=== PATIENT | female | born 1995 | race Caucasian/White ===

== ENCOUNTER 2017-11-03 21:06 | Outpatient (CLI) | payer MEDICAID ==
[2017-11-04 01:47] LABS: ADD UMIC YES; UR ASCORBIC ACID 40 mg/dL (NEGATIVE); UR BACTERIA FEW /HPF (NONE SEEN); UR BILIRUBIN (Dip) NEGATIVE (NEGATIVE); UR BLOOD (Dip) NEGATIVE (NEGATIVE); UR CLARITY CLOUDY (CLEAR); UR COLOR YELLOW (YELLOW); UR GLUCOSE (Dip) NEGATIVE (NEGATIVE); UR KETONES (Dip) NEGATIVE (NEGATIVE); UR LEUKOCYTE ESTERASE (Dip) TRACE Leu/ul (NEGATIVE); UR NITRITE (Dip) NEGATIVE (NEGATIVE); UR RBC 0 /HPF (0-5); UR SPECIFIC GRAVITY (Dip) 1.025 (1.003-1.030); UR SQUAMOUS EPITHELIAL CELL MODERATE /HPF (FEW); UR TOTAL PROTEIN (Dip) NEGATIVE (NEGATIVE); UR UROBILINOGEN (Dip) NEGATIVE (NEGATIVE); UR WBC 6 /HPF (0-5)
[2017-11-04 01:59] LABS: RUPTURE FETAL MEMBRANES NEGATIVE (NEGATIVE)
== END 2017-11-04 02:23 | disposition home or self-care (01) ==
LOC: OBT 21:06 → L-D 21:07
DX: O42.912 Preterm premature rupture of membranes, unspecified as to length of time between rupture and onset of labor, second trimester (principal); Z3A.22 22 weeks gestation of pregnancy
CPT/HCPCS: 76815; 81001; 84112

== ENCOUNTER 2018-01-10 18:34 | Outpatient (CLI) | payer OTHER, MEDICAID ==
[2018-01-10 20:43] LABS: ADD UMIC NO; UR ASCORBIC ACID NEGATIVE (NEGATIVE); UR BILIRUBIN (Dip) NEGATIVE (NEGATIVE); UR BLOOD (Dip) NEGATIVE (NEGATIVE); UR CLARITY CLEAR (CLEAR); UR COLOR STRAW (YELLOW); UR GLUCOSE (Dip) NEGATIVE (NEGATIVE); UR KETONES (Dip) NEGATIVE (NEGATIVE); UR LEUKOCYTE ESTERASE (Dip) NEGATIVE Leu/ul (NEGATIVE); UR NITRITE (Dip) NEGATIVE (NEGATIVE); UR SPECIFIC GRAVITY (Dip) 1.008 (1.003-1.030); UR TOTAL PROTEIN (Dip) NEGATIVE (NEGATIVE); UR UROBILINOGEN (Dip) NEGATIVE (NEGATIVE)
[2018-01-10 21:10] LABS: AMPHETAMINE/METHAMPHETAMINE Negative (NEGATIVE); BARBITURATES Negative (NEGATIVE); BENZODIAZEPINES Negative (NEGATIVE); CANNABINOIDS Negative (NEGATIVE); COCAINE Negative (NEGATIVE); OPIATES Negative (NEGATIVE)
== END 2018-01-10 21:24 | disposition home or self-care (01) ==
LOC: OBT 18:34 → L-D 18:35 → OBT 21:24
DX: O26.893 Other specified pregnancy related conditions, third trimester (principal); Z3A.31 31 weeks gestation of pregnancy; R42 Dizziness and giddiness
CPT/HCPCS: 76818; 80307; 81003

== ENCOUNTER 2018-02-17 07:31 | Outpatient (CLI) | payer OTHER ==
[2018-02-17] MEDS: LACTATED RINGER'S 2,000 ML IV* (08:40)
[2018-02-17] MEDS: TERBUTALINE 1 MG/ML INJ SC (08:41)
[2018-02-17 08:44] LABS: ADD UMIC NO; UR ASCORBIC ACID 20 mg/dL (NEGATIVE); UR BACTERIA FEW /HPF (NONE SEEN); UR BILIRUBIN (Dip) NEGATIVE (NEGATIVE); UR BLOOD (Dip) NEGATIVE (NEGATIVE); UR CLARITY SLIGHTLY CLOUDY (CLEAR); UR COLOR YELLOW (YELLOW); UR GLUCOSE (Dip) NEGATIVE (NEGATIVE); UR KETONES (Dip) NEGATIVE (NEGATIVE); UR LEUKOCYTE ESTERASE (Dip) NEGATIVE Leu/ul (NEGATIVE); UR MUCUS FEW /HPF (NONE SEEN); UR NITRITE (Dip) NEGATIVE (NEGATIVE); UR RBC 1 /HPF (0-5); UR SPECIFIC GRAVITY (Dip) 1.015 (1.003-1.030); UR SQUAMOUS EPITHELIAL CELL FEW /HPF (FEW); UR TOTAL PROTEIN (Dip) NEGATIVE (NEGATIVE); UR UROBILINOGEN (Dip) NEGATIVE (NEGATIVE); UR WBC 3 /HPF (0-5)
[2018-02-17 08:50] LABS: AMPHETAMINE/METHAMPHETAMINE Negative (NEGATIVE); BARBITURATES Negative (NEGATIVE); BENZODIAZEPINES Negative (NEGATIVE); CANNABINOIDS Negative (NEGATIVE); COCAINE Negative (NEGATIVE); OPIATES Negative (NEGATIVE)
[2018-02-17] MEDS: LACTATED RINGER'S 1,000 ML IV* (09:08)
[2018-02-17 09:26] LABS: ADD MAN DIFF? NO
[2018-02-17 09:30] LABS: WHITE BLOOD COUNT 10.3 10^3/ul (4.8-10.8)
[2018-02-17 09:30] LABS: BASOPHILS % 0.3 % (0.0-2.0); EOSINOPHILS # 0.1 10^3/ul (0.0-0.5); EOSINOPHILS % 0.9 % (0.0-7.0); HEMATOCRIT 35.8 % (37.0-47.0); LYMPHOCYTES # 1.4 10^3/ul (0.8-2.9); LYMPHOCYTES % 13.7 % (15.0-51.0); MEAN CORPUSCULAR HEMOGLOBIN 31.5 pg (29.0-33.0); MEAN CORPUSCULAR HGB CONC 33.5 g/dl (32.0-37.0); MEAN PLATELET VOLUME 11.1 fl (7.4-10.4); MONOCYTE # 0.8 10^3/ul (0.3-0.9); MONOCYTES % 8.1 % (0.0-11.0); NEUTROPHIL # 7.8 10^3/ul (1.6-7.5); NEUTROPHILS % 75.6 % (39.0-77.0); PLATELET COUNT 174 10^3/UL (140-415); RED BLOOD COUNT 3.81 10^6/ul (4.20-5.40); RED CELL DISTRIBUTION WIDTH 11.9 % (11.5-14.5)
== END 2018-02-17 10:12 | disposition left against medical advice (07) ==
LOC: OBT 07:31 → L-D 07:31 → OBT 10:12
DX: Z53.21 Procedure and treatment not carried out due to patient leaving prior to being seen by health care provider (principal)
CPT/HCPCS: 36415; 76818; 80307; 81001; 81003; 85025; 87086; 96360

== ENCOUNTER 2018-03-05 12:37 | Outpatient (CLI) | payer OTHER ==
[2018-03-05 13:57] LABS: RUPTURE FETAL MEMBRANES NEGATIVE (NEGATIVE)
[2018-03-05] MEDS ORDERED: TERBUTALINE 1 MG/ML INJ SC (18:30)
[2018-03-05] MEDS ORDERED: MEPERIDINE 50 MG INJ IM (18:30)
== END 2018-03-05 18:30 | disposition home or self-care (01) ==
LOC: OBT 12:37 → L-D 12:42 → OBT 18:30
DX: O42.913 Preterm premature rupture of membranes, unspecified as to length of time between rupture and onset of labor, third trimester (principal); Z3A.36 36 weeks gestation of pregnancy
CPT/HCPCS: 76815; 76818; 84112

== ENCOUNTER 2018-03-14 04:55 | Inpatient (IN) | payer OTHER ==
[2018-03-14] MEDS ORDERED: OXYTOCIN 30 UNITS/LR 500 ML IV ×2 (06:30)
[2018-03-14] MEDS ORDERED: BUTORPHANOL 2 MG INJ IV (06:30)
[2018-03-14] MEDS ORDERED: LIDOCAINE 1% (MPF) 30 ML INJ INJ (06:30)
[2018-03-14] MEDS ORDERED: IBUPROFEN 600 MG TAB PO (06:30)
[2018-03-14] MEDS ORDERED: CARBOPROST 250 MCG INJ IM (06:30)
[2018-03-14] MEDS ORDERED: AMPICILLIN 2 GM/NS (PMX) 100 ML IV (06:30)
[2018-03-14] MEDS: LACTATED RINGER'S 1,000 ML IV ×5 (06:53→23:00)
[2018-03-14 07:08] LABS: ADD MAN DIFF? NO
[2018-03-14 07:11] LABS: BASOPHILS % 0.3 % (0.0-2.0); EOSINOPHILS % 0.1 % (0.0-7.0); HEMOGLOBIN 13.2 g/dl (12.0-16.0); LYMPHOCYTES # 1.2 10^3/ul (0.8-2.9); LYMPHOCYTES % 9.5 % (15.0-51.0); MEAN CORPUSCULAR HEMOGLOBIN 31.1 pg (29.0-33.0); MEAN CORPUSCULAR HGB CONC 33.8 g/dl (32.0-37.0); MEAN CORPUSCULAR VOLUME 91.8 fl (82.0-101.0); MEAN PLATELET VOLUME 11.3 fl (7.4-10.4); MONOCYTE # 0.7 10^3/ul (0.3-0.9); MONOCYTES % 5.3 % (0.0-11.0); NEUTROPHIL # 10.7 10^3/ul (1.6-7.5); NEUTROPHILS % 83.9 % (39.0-77.0); PLATELET COUNT 203 10^3/UL (140-415); RED BLOOD COUNT 4.25 10^6/ul (4.20-5.40); RED CELL DISTRIBUTION WIDTH 11.9 % (11.5-14.5)
[2018-03-14 07:11] LABS: WHITE BLOOD COUNT 12.8 10^3/ul (4.8-10.8)
[2018-03-14 07:31] LABS: INR 0.96; PARTIAL THROMBOPLASTIN TIME 25.8 Sec (23.0-35.0); PROTIME 12.9 Sec (11.9-14.9)
[2018-03-14 08:01] LABS: HEPATITIS B SURFACE ANTIGEN NEGATIVE (NEGATIVE)
[2018-03-14 09:03] LABS: ADD UMIC NO; UR ASCORBIC ACID NEGATIVE (NEGATIVE); UR BILIRUBIN (Dip) NEGATIVE (NEGATIVE); UR BLOOD (Dip) NEGATIVE (NEGATIVE); UR CLARITY CLEAR (CLEAR); UR COLOR YELLOW (YELLOW); UR GLUCOSE (Dip) NEGATIVE (NEGATIVE); UR KETONES (Dip) NEGATIVE (NEGATIVE); UR LEUKOCYTE ESTERASE (Dip) NEGATIVE Leu/ul (NEGATIVE); UR NITRITE (Dip) NEGATIVE (NEGATIVE); UR SPECIFIC GRAVITY (Dip) 1.006 (1.003-1.030); UR TOTAL PROTEIN (Dip) NEGATIVE (NEGATIVE); UR UROBILINOGEN (Dip) NEGATIVE (NEGATIVE)
[2018-03-14] MEDS: OXYTOCIN 30 UNITS/LR 500 ML IV (10:15)
[2018-03-14] MEDS ORDERED: AMPICILLIN 1 GM/NS (PMX) 50 ML IV (10:30)
[2018-03-14] MEDS ORDERED: FENTAnyl 2MCG/ML-ROPIV 0.2% 100 ML (10:55)
[2018-03-14] MEDS ORDERED: DIPHENHYDRAMINE 50 MG INJ IV (12:30)
[2018-03-14] MEDS ORDERED: NALOXONE (0.4 MG/ML) INJ IV (12:30)
[2018-03-14] MEDS ORDERED: ONDANSETRON 4 MG INJ IV (12:30)
[2018-03-14] MEDS: AMPICILLIN 2 GM/NS (PMX) 100 ML IVPB (14:03)
[2018-03-14] MEDS: FENTAnyl 2MCG/ML-ROPIV 0.2% 100 ML BAG EPI ×2 (15:16→21:29)
[2018-03-14 15:17] LABS: RAPID PLASMA REAGIN NONREACTIVE (NR)
[2018-03-14] MEDS: AMPICILLIN 1 GM/NS (PMX) 50 ML IV ×2 (17:43→21:31)
[2018-03-14 22:55] LABS: HIV 1&2 ANTIBODY NEGATIVE (NEGATIVE)
[2018-03-14] MEDS ORDERED: LIDOCAINE 1% (MPF) 30 ML INJ (23:18)
[2018-03-14] MEDS: MINERAL OIL LIGHT 10 ML VIAL TOP (23:30)
[2018-03-15] MEDS: MISOPROSTOL 200 MCG TAB PR (00:47)
[2018-03-15] MEDS: METHYLERGONOVINE 0.2 MG INJ IM (00:52)
[2018-03-15] MEDS: OXYTOCIN 30 UNITS/LR 500 ML IV (01:03)
[2018-03-15] MEDS: AMPICILLIN 1 GM/NS (PMX) 50 ML IV ×3 (02:00→06:57)
[2018-03-15] MEDS: DEXTROSE 5%-LR 1,000 ML IV ×2 (03:01→06:58)
[2018-03-15] MEDS: LACTATED RINGER'S 1,000 ML IV* (03:01)
[2018-03-15] MEDS ORDERED: METHYLERGONOVINE 0.2 MG INJ IM (03:30)
[2018-03-15] MEDS ORDERED: MISOPROSTOL 200 MCG TAB PR (03:30)
[2018-03-15] MEDS ORDERED: SENNA/DOCUSATE NA (8.6MG/50MG) TAB PO (03:30)
[2018-03-15] MEDS ORDERED: CARBOPROST 250 MCG INJ IM (03:30)
[2018-03-15] MEDS ORDERED: DIPHENHYDRAMINE 50 MG INJ IV (03:30)
[2018-03-15] MEDS ORDERED: ZOLPIDEM 5 MG TAB PO (03:30)
[2018-03-15] MEDS ORDERED: ONDANSETRON 4 MG INJ IV (03:30)
[2018-03-15] MEDS ORDERED: OXYCODONE/ASPIRIN (4.88/325) TAB PO (03:30)
[2018-03-15] MEDS ORDERED: DIBUCAINE 1% 30 GM OINT TOP (03:30)
[2018-03-15] MEDS ORDERED: OXYTOCIN 30 UNITS/LR 500 ML IV (03:30)
[2018-03-15] MEDS: LANOLIN 7 GM TUBE TOP (04:24)
[2018-03-15] MEDS: BENZOCAINE 20% 56 ML SPRAY TOP (04:25)
[2018-03-15] MEDS: WITCH HAZEL/GLYCERIN PAD PR ×2 (04:25→20:05)
[2018-03-15] MEDS: IBUPROFEN 600 MG TAB PO ×4 (05:58→19:51)
[2018-03-15] MEDS: ACETAMINOPHEN 325 MG TAB PO (19:52)
[2018-03-16] MEDS: IBUPROFEN 600 MG TAB PO ×5 (00:21→23:59)
[2018-03-16 07:28] LABS: ADD MAN DIFF? NO
[2018-03-16 07:29] LABS: WHITE BLOOD COUNT 15.9 10^3/ul (4.8-10.8)
[2018-03-16 07:29] LABS: BASOPHIL # 0.1 10^3/ul (0.0-0.1); BASOPHILS % 0.3 % (0.0-2.0); EOSINOPHILS # 0.2 10^3/ul (0.0-0.5); EOSINOPHILS % 1.3 % (0.0-7.0); HEMATOCRIT 33.9 % (37.0-47.0); HEMOGLOBIN 11.4 g/dl (12.0-16.0); LYMPHOCYTES # 2.3 10^3/ul (0.8-2.9); LYMPHOCYTES % 14.3 % (15.0-51.0); MEAN CORPUSCULAR HEMOGLOBIN 31.8 pg (29.0-33.0); MEAN CORPUSCULAR HGB CONC 33.6 g/dl (32.0-37.0); MEAN CORPUSCULAR VOLUME 94.4 fl (82.0-101.0); MEAN PLATELET VOLUME 11.2 fl (7.4-10.4); MONOCYTE # 1.1 10^3/ul (0.3-0.9); MONOCYTES % 7.2 % (0.0-11.0); NEUTROPHIL # 12.2 10^3/ul (1.6-7.5); NEUTROPHILS % 76.2 % (39.0-77.0); PLATELET COUNT 178 10^3/UL (140-415); RED BLOOD COUNT 3.59 10^6/ul (4.20-5.40); RED CELL DISTRIBUTION WIDTH 12.1 % (11.5-14.5)
[2018-03-17] MEDS: IBUPROFEN 600 MG TAB PO ×2 (06:42→12:00)
[2018-03-17] MEDS: DIPHTH/TET/ACEL PERTUSS (ADULT) 0.5 ML VIAL IM* (09:00)
[2018-03-17] MEDS: MEASLES,MUMPS,RUBELLA VACCINE INJ SC* (09:00)
[2018-03-18 12:16] LABS: RUBELLA ANTIBODY - IGG 4.98 index; RUBELLA ANTIBODY - IGM <20.00 AU/mL
== END 2018-03-17 12:35 | disposition home or self-care (01) | DRG 807 ==
LOC: OBT 04:55 → PP1 03-15 03:28 → L-D 04:55 → OBT 07:34 → L-D 06:30
PROC: 10E0XZZ Delivery of Products of Conception, External Approach (ICD-10-PCS; principal; 2018-03-14)
PROC: 0W8NXZZ Division of Female Perineum, External Approach (ICD-10-PCS; 2018-03-14)
DX: O80 Encounter for full-term uncomplicated delivery (principal); Z37.0 Single live birth; Z3A.38 38 weeks gestation of pregnancy
CPT/HCPCS: 36415; 62319; 76815; 81003; 85025; 85610; 85730; 86592; 86703; 86762; 86850; 86900; 86901; 87086; 87340; 90715; 99464

== ENCOUNTER 2018-03-27 12:06 | Emergency (ER) | payer OTHER ==
[2018-03-27 12:42] LABS: ADD MAN DIFF? NO
[2018-03-27] MEDS: SOD CHLORIDE 0.9% 1,000 ML IV (12:42)
[2018-03-27 12:50] LABS: BASOPHIL # 0.1 10^3/ul (0.0-0.1); BASOPHILS % 0.9 % (0.0-2.0); EOSINOPHILS # 0.1 10^3/ul (0.0-0.5); EOSINOPHILS % 2.1 % (0.0-7.0); HEMATOCRIT 41.7 % (37.0-47.0); LYMPHOCYTES # 1.8 10^3/ul (0.8-2.9); LYMPHOCYTES % 26.9 % (15.0-51.0); MEAN CORPUSCULAR HEMOGLOBIN 31.3 pg (29.0-33.0); MEAN CORPUSCULAR HGB CONC 33.6 g/dl (32.0-37.0); MEAN CORPUSCULAR VOLUME 93.1 fl (82.0-101.0); MONOCYTE # 0.4 10^3/ul (0.3-0.9); MONOCYTES % 6.5 % (0.0-11.0); NEUTROPHIL # 4.3 10^3/ul (1.6-7.5); PLATELET COUNT 324 10^3/UL (140-415); RED BLOOD COUNT 4.48 10^6/ul (4.20-5.40); RED CELL DISTRIBUTION WIDTH 11.2 % (11.5-14.5)
[2018-03-27 12:50] LABS: WHITE BLOOD COUNT 6.8 10^3/ul (4.8-10.8)
[2018-03-27 13:07] LABS: ALANINE AMINOTRANSFERASE 15 IU/L (13-69); ALBUMIN 3.7 g/dl (3.3-4.9); ALBUMIN/GLOBULIN RATIO 1.02; ALKALINE PHOSPHATASE 125 IU/L (42-121); ANION GAP 10 (5-13); ASPARTATE AMINO TRANSFERASE 22 IU/L (15-46); BILIRUBIN,INDIRECT 0.7 mg/dl (0-1.1); BILIRUBIN,TOTAL 0.7 mg/dl (0.2-1.3); BLOOD UREA NITROGEN 11 mg/dl (7-20); CARBON DIOXIDE 26 mmol/L (21-31); CHLORIDE 106 mmol/L (97-110); Estimated GFR > 60 mL/min (>60); GLUCOSE 103 mg/dl (70-220); POTASSIUM 4.3 mmol/L (3.5-5.1); SODIUM 142 mmol/L (135-144); TOTAL PROTEIN 7.3 g/dl (6.1-8.1)
[2018-03-27 13:08] LABS: INR 0.94; PROTIME 12.7 Sec (11.9-14.9)
[2018-03-27 13:09] LABS: PARTIAL THROMBOPLASTIN TIME 27.5 Sec (23.0-35.0)
== END 2018-03-27 14:18 | disposition home or self-care (01) ==
LOC: E/R 12:06
DX: O72.2 Delayed and secondary postpartum hemorrhage (principal)
CPT/HCPCS: 36415; 76856; 80053; 84702; 85025; 85610; 85730; 86850; 86900; 86901; 99284-25

== ENCOUNTER 2018-07-02 17:45 | Emergency (ER) | payer OTHER ==
[2018-07-02 19:33] LABS: URINE BLOOD (Dip) POC Negative (NEGATIVE); URINE GLUCOSE (Dip) POC Negative (NEGATIVE); URINE KETONES (Dip) POC Negative (NEGATIVE); URINE LEUKOCYTE EST (Dip) POC Trace (NEGATIVE); URINE NITRITE (Dip) POC Negative (NEGATIVE); URINE TOTAL PROTEIN POC Trace (NEGATIVE)
== END 2018-07-02 20:41 | disposition home or self-care (01) ==
LOC: FTE 17:45
DX: N76.0 Acute vaginitis (principal)
CPT/HCPCS: 81003; 81025; 87591; 99284